=== PATIENT | female | born 1960 | race Caucasian/White ===

== ENCOUNTER 2017-01-14 22:20 | Emergency (ER) | payer OTHER ==
--- NOTE | ~2017-01-14 | CR112 ---
[facility] A Service of [facility] RADIOLOGY TEXT RESULTS PATIENT: EDVIN ALICEA LOCATION: SED : 64 UNIT #: [id number] AGE: [address]: Mark Anthony Gomes SEX: F ORDER DR: [id number] [address] [address] [id number] E MR#: [id number] Acc #: [id number] NAME: EDVIN ALICEA. : 1960 SEX: F STUDY DATE/TIME: 01/14/2017 22:36 UNIT: SED ROOM: STUDY DESCRIPTION: CR Finger 2 View 4Th Lt Attending Physician: Mark Anthony Gomes P.A.-C. Ordering Physician: Mark Anthony Gomes P.A.-C. Primary Care Physician: Primary Care Physician No MEDICAL IMAGING REPORT This report is preliminary unless electronic signature is present. EXAM Left fourth digit, 01/14 22:36 INDICATIONS Degloving injury of ring finger. Injury prior to arrival. Finger got caught in trash can. FINDINGS 3 views of the left fourth digit were obtained. There is fairly extensive soft tissue injury at the base of the digit. No associated fracture or malalignment is seen. No radiopaque foreign bodies. IMPRESSION Extensive soft tissue injury at the proximal finger. No fracture or radiopaque foreign body is seen. Dictated by... Emerson Parrish Jr., M.D. THIS IS AN ELECTRONICALLY VERIFIED REPORT Emerson Parrish Jr., M.D. at 01/15/2017 6:01 AM FOSTER/janey TD: 01/15/2017 00:03 JOB #: [id number] MEDICAL IMAGING REPORT Page 1 of 1
[~2017-01-14 22:20] MED LIST: AUGMENTIN875 M1 PO; COMBIVENT RESPIM4 GM INH; NO MEDICATIONS; SYNTHROID0.05 MG PO
[2017-01-16] MEDS ORDERED: TRAMADOL PO (14:03)
== END 2017-01-15 00:48 ==
LOC: SED 22:20
DX: S61.215A Laceration without foreign body of left ring finger without damage to nail, initial encounter (principal); X58.XXXA Exposure to other specified factors, initial encounter; Y92.410 Unspecified street and highway as the place of occurrence of the external cause; Z23 Encounter for immunization
CPT/HCPCS: 73140; 90471; 90715; 96374; 99283; 99285; J1170; J2405

== ENCOUNTER 2017-01-16 13:53 | Emergency (ER) | payer OTHER ==
[2017-01-16] MEDS ORDERED: TRAMADOL PO (14:03)
== END 2017-01-16 15:50 ==
LOC: SED 13:53
DX: S69.91XA Unspecified injury of right wrist, hand and finger(s), initial encounter (principal); Z88.8 Allergy status to other drugs, medicaments and biological substances; Z79.899 Other long term (current) drug therapy; X58.XXXA Exposure to other specified factors, initial encounter
CPT/HCPCS: 99285